=== PATIENT | female | born 1960 | race Caucasian/White ===

== ENCOUNTER 2018-05-28 08:36 | Day surgery (SDC) | payer OTHER ==
[2018-05-27] MEDS: DEXAMETHASONE 2 MG TAB PO (06:00)
[~2018-05-28 08:36] MED LIST: CEFAZOLIN 2 GM/50 ML (PMX) 50 ML IVPB; LIDOCAINE 2% (SDV) 5 ML INJ; PROPOFOL 200 MG INJ; ROCURONIUM 50 MG INJ; SEVOFLURANE 15 MIN
[2018-05-28] MEDS ORDERED: DEXAMETHASONE 2 MG TAB (10:29)
[2018-05-28] MEDS ORDERED: ROPIVACAINE 0.2% 20 ML VIAL (11:01)
[2018-05-28] MEDS ORDERED: ROPIVACAINE 0.5 % 30 ML VIAL (11:01)
[2018-05-28] MEDS ORDERED: MIDAZOLAM 1 MG/ML 2 ML INJ (11:05)
[2018-05-28] MEDS ORDERED: LABETALOL HCL 20MG INJ (12:52)
[2018-05-28] MEDS ORDERED: ONDANSETRON 4 MG INJ (13:05)
[2018-05-28] MEDS ORDERED: CEFAZOLIN 1 GM INJ (13:05)
[2018-05-28] MEDS ORDERED: DEXAMETHASONE 4 MG/ML 1 ML INJ (13:05)
[2018-05-28] MEDS ORDERED: KETOROLAC 30 MG INJ (13:30)
[2018-05-28] MEDS ORDERED: NEOSTIGMINE 3 MG/3 ML SYRINGE (13:49)
[2018-05-28] MEDS ORDERED: GLYCOPYRROLATE 0.4 MG INJ (13:50)
[2018-05-28] MEDS: hydrALAzine 20 MG INJ IV (14:27)
[2018-05-28] MEDS ORDERED: KETOROLAC 30 MG INJ IV (14:30)
[2018-05-28] MEDS ORDERED: ONDANSETRON 4 MG INJ IV (14:30)
[2018-05-28] MEDS ORDERED: METOCLOPRAMIDE 10 MG INJ IV (14:30)
[2018-05-28] MEDS ORDERED: ALBUTEROL 0.083% (NEB) 2.5 MG/3 ML AMP HHN (14:30)
[2018-05-28] MEDS ORDERED: FENTAnyl 50 MCG/ML VIAL IV ×3 (14:30)
[2018-05-28] MEDS ORDERED: MIDAZOLAM 1 MG/ML 2 ML INJ IV (14:30)
[2018-05-28] MEDS ORDERED: OXYCODONE/ACETAMINOPHEN (5/325) TAB PO ×2 (14:30)
[2018-05-28] MEDS ORDERED: HYDROmorphONE 1 MG/5 ML IV SYRINGE IV ×3 (14:30)
[2018-05-28] MEDS ORDERED: DIPHENHYDRAMINE 50 MG INJ IV (14:30)
[2018-05-28] MEDS ORDERED: EPHEDrine SULFATE 50 MG/5 ML SYG IV (14:30)
[2018-05-28] MEDS ORDERED: MEPERIDINE 25 MG INJ IV (14:30)
[2018-05-28] MEDS: LABETALOL HCL 20MG INJ IV (14:36)
== END 2018-05-28 16:00 | disposition home or self-care (01) ==
LOC: SDS 08:36
DX: S43.421A Sprain of right rotator cuff capsule, initial encounter (principal); M75.41 Impingement syndrome of right shoulder; M19.011 Primary osteoarthritis, right shoulder; E78.5 Hyperlipidemia, unspecified; E11.9 Type 2 diabetes mellitus without complications; E66.9 Obesity, unspecified; X58.XXXA Exposure to other specified factors, initial encounter; Y93.89 Activity, other specified; Y92.89 Other specified places as the place of occurrence of the external cause; Y99.8 Other external cause status
CPT/HCPCS: 29824; 82962